=== PATIENT | female | born 1985 | race Caucasian/White ===

== ENCOUNTER 2020-07-09 16:37 | Emergency (ER) | payer OTHER, SELFPAY ==
--- NOTE | ~2020-07-09 | XR_ITS ---
EXAMINATION: XR forearm RT 2V DATE: 07/09/2020 17:11 INDICATION: Right forearm pain. TECHNIQUE: 2 views of right forearm were obtained. COMPARISON: None. FINDINGS: Bone alignment is normal. There is a fracture of right radial neck with mild impaction. Delmi nt spaces are well maintained. IMPRESSION: 1. Right radial neck fracture with mild impaction. Reviewed, dictated and finalized at location A.
[2020-07-09 16:46] VITALS: BP 129/73; PULSE 90; RESP 18; TEMP 36.8; O2SAT 98
--- NOTE | 2020-07-09 16:59 | ED.UPPEXIN ---
HPI - Extremity Injury (Upper) General Chief Complaint: Extremity Injury, Upper Stated Complaint: right arm injury Time Seen by Provider: 07/09/20 17:00 Source: patient and RN notes reviewed History of Present Illness HPI narrative: Patient is a 35-year-old female who presents the urgent care with complaints of right forearm and elbow pain. Patient states that [place] Patient states she fell directly onto the right arm and denies hitting her head or any loss of consciousness. Patient states that happened prior to arrival and she has not taken anything for pain. No other acute complaints. No acute distress noted. Patient aware of the plan of care. Some parts of this dictation were generated by voice recognition software and may contain typographical and/or grammatical inaccuracies. Related Data Home Medications Medication Instructions Recorded Confirmed levetiracetam [Keppra] 1,500 mg PO HS 07/09/20 07/09/20 metformin 1,500 mg PO BID 07/09/20 07/09/20 sertraline [Zoloft] 25 mg PO DAILY 07/09/20 07/09/20 Allergies Allergy/AdvReac Type Severity Reaction Status Date / Time phenytoin [From Dilantin] AdvReac Seizure Verified 07/09/20 17:16 Review of Systems Review of Systems: Narrative: CONSTITUTIONAL: Denies fever, chills, or sweats. EYES: Denies visual changes, redness, or discharge. ENT: Denies rhinorrhea, congestion, sore throat, or otalgia. CARDIOVASCULAR: Denies chest pain, palpitations, or edema. RESPIRATORY: Denies cough or dyspnea. GASTROINTESTINAL: Denies abdominal pain, nausea, vomiting, or diarrhea. GENITOURINARY: Denies dysuria or hematuria. SKIN: Denies rash or itching. MUSCULOSKELETAL: Reports of right forearm and elbow pain NEUROLOGIC: Denies headache, numbness, or weakness. All other systems reviewed are negative, except as documented in HPI. PMFSH Comments At the time of my signature, I reviewed and agree with the nursing past medical, surgical, social, and family history. There is no relevant family history pertinent to the patient complaint. Exam Narrative: Exam Narrative: GENERAL: This is a well-nourished, well-developed patient, in no apparent distress. HEAD: normocephalic, atraumatic. EYES: PERRL. Sclera clear/white. Vision is grossly intact. EARS: External ears normal NOSE: External nose normal with no obvious nasal discharge, nares without redness, no rhinorrhea. THROAT: Mucous membranes moist NECK: Neck supple SKIN: warm, intact with no suspicious lesions or rash, good texture and turgor. NEURO: awake, alert, and oriented to person, place and time. There were no obvious focal neurologic abnormalities. EXTREMITIES: Unable to assess range of motion to right upper extremity due to pain. Pain exacerbated with internal range of motion. Pain exacerbated with movement of the fingers. Positive strong right radial pulse with capillary refill less than 2 seconds. No obvious deformity, erythema or edema noted to the right upper extremity. Course Vital Signs Vital signs: Vital Signs Temperature 98.2 F 07/09/20 16:46 Pulse Rate 90 07/09/20 16:46 Respiratory Rate 18 07/09/20 16:46 Blood Pressure 129/73 07/09/20 16:46 Pulse Oximetry 98 07/09/20 16:46 Temperature 98.2 F 07/09/20 16:46 Pulse Rate 90 07/09/20 16:46 Respiratory Rate 18 07/09/20 16:46 Blood Pressure 129/73 07/09/20 16:46 Pulse Oximetry 98 07/09/20 16:46 Reviewed Procedures Orthopedic Splinting/Casting Injury #1: Side: right Upper Extremity Injury Location: upper arm (Radial neck) OCL: sugar tong Pre-Procedure Neuro Vascular Exam: normal Post-Procedure Neuro Vascular Exam: normal Additional Comments: Sugar tong applied to the right arm for radial neck fracture. Patient tolerated well. OCL placed by transporter radiology. Normal neurovascular exam pre and post procedure. Procedure successful. MDM - E
== END 2020-07-09 17:53 | disposition home or self-care (01) ==
PROVIDERS: Emergency Provider Nurse Practitioner Family
DX: S52.134A Nondisplaced fracture of neck of right radius, initial encounter for closed fracture (principal); W19.XXXA Unspecified fall, initial encounter; G40.909 Epilepsy, unspecified, not intractable, without status epilepticus; E28.2 Polycystic ovarian syndrome
CPT/HCPCS: 29125; 73090; 99214; A4565; G0463

== ENCOUNTER 2020-09-29 11:16 | Emergency (ER) | payer OTHER, SELFPAY ==
--- NOTE | ~2020-09-29 | XR_ITS ---
EXAMINATION: XR toe 1st RT min 2V EXAM DATE: 09/29/2020 11:35 INDICATION: Stubbing injury x 3 weeks, proximal pain. TECHNIQUE: Right 1st toe frontal, lateral and oblique projections obtained and reviewed. There is no prior study for comparison. FINDINGS: Probable acute closed posttraumatic fracture through the head of the right 1st proximal ph alanx into the interphalangeal joint. This finding has been indicated, marked on the examination for review, clinical correlation. No other suspicious findings. IMPRESSION: Probable right 1st proximal phalangeal head intra-articular fracture. Reviewed, dictated and finalized at location B. IMPRESSION: Probable right 1st proximal phalangeal head intra-articular fractu re.
[2020-09-29 11:20] VITALS: BP 125/90; PULSE 95; RESP 18; TEMP 37.1; O2SAT 98
[2020-09-29 11:30] VITALS: BP 125/90; PULSE 95; RESP 18; TEMP 37.1; O2SAT 98
--- NOTE | 2020-09-29 11:57 | ED.LOWEXIN ---
HPI - Extremity Injury (Lower) General Chief Complaint: Extremity Injury, Lower Stated Complaint: right big toe injury Source: patient and RN notes reviewed Mode of arrival: ambulatory History of Present Illness HPI Narrative: The obese patient, previously mostly healthy, presents with right toe pain. Patient states she has a least 1/2-month history of right toe pain that is mild, worse with motion, better at rest or previous fátima taping, located at the great toe. Symptoms began when she slipped hiking earlier in the month. No bleeding, deformity Related Data Home Medications Medication Instructions Recorded Confirmed levetiracetam [Keppra] 1,500 mg PO HS 07/09/20 09/29/20 metformin 1,500 mg PO BID 07/09/20 09/29/20 sertraline 50 mg PO DAILY 09/29/20 09/29/20 Allergies Allergy/AdvReac Type Severity Reaction Status Date / Time phenytoin [From Dilantin] AdvReac Seizure Verified 09/29/20 11:21 Review of Systems Review of Systems: Narrative: General/Constitutional: No weight loss,fever Eyes: N0: Redness,discharge Ears/Nose/Throat: No: Epistaxis,ear discharge Respiratory: Denies: Hemoptysis Gastrointestinal: No Vomiting, Bleeding-rectal Skin: No Lumps, eruption Neurologic: No Focal Weakness,Sz Hematologic: Denies: Petechiae/Purpura Psychiatric: No: Suicida ideationl All Other Systems: Reviewed and Negative [facility] Comments At time of signature, agree with nursing past medical, surgical, social and family history. There is no relevant family history pertinent to the presenting complaint Exam Narrative: Exam Narrative: General Appearance: Well appearing, conjunctiva clear Mouth/Throat: Normal appearing, Normal lips, Supple Respiratory: Airway patent, No respiratory distress MS-toe: Normal strength (mostly intact, limited flexion/extension by pain), Tenderness (MTP, with mild decreased ROM), Scant swelling (laterally), Other (no anterior drawer, no collateral laxity, Skin: Warm, Dry, Normal color Neurological: A&O x3, , Normal affect Course Course Emergency Course: Films visualized, interpreted by radiologist, agree, ABnormal see report Vital Signs Vital signs: Vital Signs Temperature 98.8 F 09/29/20 11:20 Pulse Rate 95 09/29/20 11:20 Respiratory Rate 18 09/29/20 11:20 Blood Pressure 125/90 09/29/20 11:20 Pulse Oximetry 98 09/29/20 11:20 Temperature 98.8 F 09/29/20 11:30 Pulse Rate 95 09/29/20 11:30 Respiratory Rate 18 09/29/20 11:30 Blood Pressure 125/90 09/29/20 11:30 Pulse Oximetry 98 09/29/20 11:30 Discharge Plan Discharge Clinical Impression: Fracture of toe Patient Disposition: Home, Self-Care Condition: Stable Instructions: Toe Fracture (ED) Additional Instructions: See podiatry in follow-up Prescriptions: New tramadol 50 mg tablet 50 - 75 mg PO TID PRN (Reason: pain) Qty: 14 RF: 0 epinephrine 0.3 mg/0.3 mL auto-injector 0.3 mg IM ONCE Qty: 1 RF: 3 No Action sertraline 50 mg tablet 50 mg PO DAILY RF: 0 levetiracetam [Keppra] 500 mg Tablet 1,500 mg PO HS RF: 0 metformin 500 mg Tablet 1,500 mg PO BID RF: 0 Follow-up/Referrals: PHYSICIAN,CERTIFIED TOWER CLIMBER [Primary Care Provider] -
--- NOTE | 2020-09-29 12:09 | PC.NURSE ---
PT DECLINED ICE FOR COMFORT AND WHEELCHAIR TO RADIOLOGY
== END 2020-09-29 12:05 | disposition home or self-care (01) ==
PROVIDERS: Emergency Provider Emergency Medicine
DX: S92.401A Displaced unspecified fracture of right great toe, initial encounter for closed fracture (principal); W01.0XXA Fall on same level from slipping, tripping and stumbling without subsequent striking against object, initial encounter; Y93.01 Activity, walking, marching and hiking; G40.909 Epilepsy, unspecified, not intractable, without status epilepticus; E28.2 Polycystic ovarian syndrome
CPT/HCPCS: 73660; 99213; G0463

== ENCOUNTER 2024-07-24 09:29 | Emergency (ER) | payer OTHER, SELFPAY ==
--- NOTE | 2024-07-24 09:31 | ED.WOUNDLAC ---
HPI - Wound/Laceration General Chief Complaint: Wound/Laceration Stated Complaint: Left Hand Finger Laceration Source: patient and RN notes reviewed Mode of arrival: ambulatory Limitations: no limitations History of Present Illness HPI narrative: Patient is a 39-year-old female who presents to the [facility] with complaints of laceration to the proximal phalanx of her left index finger. Patient states that she was using a supervisor mattress and boxsprings to cut a caution cone when she accidentally cut her finger. She was at work when the injury occurred. She works at the [employer]. Patient is neurovascularly intact. Distal motor intact. Sensation intact. Cap refill normal. Related Data Home Medications ?Medication ?Instructions ?Recorded ?Confirmed ?Last Taken ?Type levetiracetam 500 mg tablet 1,500 mg PO HS 07/09/20 09/29/20 Unknown History (Keppra) metformin 500 mg tablet 1,500 mg PO BID 07/09/20 09/29/20 Unknown History sertraline 50 mg tablet 50 mg PO DAILY 09/29/20 09/29/20 Unknown History Allergies Allergy/AdvReac Type Severity Reaction Status Date / Time phenytoin (From Dilantin) AdvReac Seizure Verified 09/29/20 11:21 Review of Systems Review of Systems: CONSTITUTIONAL: Denies fever, chills, or sweats. EYES: Denies visual changes, redness, or discharge. ENT: Denies otalgia and sore throat CARDIOVASCULAR: Denies chest pain, palpitations, or edema. RESPIRATORY: Denies cough or dyspnea. GASTROINTESTINAL: Denies abdominal pain, nausea, vomiting, or diarrhea. GENITOURINARY: Denies dysuria or hematuria. SKIN: reports laceration to the left index finger. MUSCULOSKELETAL: Denies back pain, joint pain, or myalgia. NEUROLOGIC: Denies headache, numbness, or weakness. Pertinent positives per HPI. PMFSH Comments At the time of my signature, I reviewed and agree with the nursing past medical, surgical, social, and family history. There is no relevant family history pertinent to the patient complaint. Exam Narrative: GENERAL: This is a well-nourished, well-developed patient, in no apparent distress. HEAD: normocephalic, atraumatic. EYES: PERRL. Sclera clear/white. Vision is grossly intact. EARS: External ears normal, auditory canals clear and without drainage, TMs normal without perforation. Hearing grossly intact. NOSE: External nose normal with no obvious nasal discharge, nares without redness, no rhinorrhea. THROAT: Mucous membranes moist, posterior pharynx clear. NECK: Neck supple, non-tender without lymphadenopathy, masses or thyromegaly. CARDIOVASCULAR: Regular rate and rhythm without murmurs, gallops, or rubs. RESPIRATORY: Clear to auscultation. Breath sounds equal bilaterally. No wheezes, rales, or rhonchi. GASTROINTESTINAL: Abdomen soft, non-tender, nondistended. Bowel sounds are active. No hepato-splenomegaly, or palpable masses. No guarding. SKIN: 1 cm laceration to the proximal phalanx of the left index finger. Bleeding controlled. Distal motor and neuro status intact. Cap refill normal. NEURO: awake, alert, and oriented to person, place and time. There were no obvious focal neurologic abnormalities. Course Course Level of Care: Express Care Visit Vital Signs Vital signs: Vital Signs Temperature 98.4 F 07/24/24 09:48 Pulse Rate 64 07/24/24 09:48 Respiratory Rate 16 07/24/24 09:48 Blood Pressure 104/59 L 07/24/24 09:48 Pulse Oximetry 99 07/24/24 09:48 Temperature 98.4 F 07/24/24 09:48 Pulse Rate 64 07/24/24 09:48 Respiratory Rate 16 07/24/24 09:48 Blood Pressure 104/59 L 07/24/24 09:48 Pulse Oximetry 99 07/24/24 09:48 Reviewed Procedures Laceration Laceration 1: Date: 07/24/24 Time: 10:10 Site: hand (left index finger) Side (If applicable): left Size (cm): 1 Description: linear Depth: simple, single layer Pre-repair: irrigated ====== Skin Level ====== Skin layer closed with: dermabond ====== Subcutaneous Layer ====== ====== Muscle Layer ====== ====== Tendon Layer ====== Dressing: Non-adhesive dressing MDM - Wound/Laceration MDM Narrative Medical decision making narrative: -Keep the dressing clean and dry for 1-2days; then you may gently clean with soap and water whenever you take a shower; however no continuous water contact like dishes or swimming. Getting them too wet can slow down healing and raise your chance of getting an infection. After you wash your stitches or andree, pat them dry and put an antibiotic ointment on them. -watch for signs of infection including: redness or swelling around the cut, or pus drains from the cut. It is normal for clear yellow fluid to drain from the cut in the first few days. -adhesive works like a bandage; do not use antibiotic ointment as it can break down the adhesive -You can shower while the adhesive is on your skin, but do not take a bath or soak or scrub the area for 7-10 days. Dry your skin by patting it gently with a towel. -The adhesive will peel off on its own; usually by 5-10days. If after 10 days, you still have adhesive on you, you can use antibiotic ointment or petroleum jelly to get it off. After you heal, you should protect the scar from the sun. Use sunscreen on the area or wear clothes or a hat that covers the scar. Follow up with your PCP is needed Differential Diagnosis Differential diagnosis: Likely laceration, abrasion and avulsion of skin Critical Care Time Critical Care Time Critical Care Time: No Discharge Plan Discharge Clinical Impression: Laceration of left index finger Qualifiers: Encounter type: initial encounter Damage to nail status: without damage Foreign body presence: without foreign body Qualified Code(s): S61.211A - Laceration without foreign body of left index finger without damage to nail, initial encounter Patient Disposition: Home Condition: Stable Instructions: Laceration (ED), Skin Adhesive Care (ED) Additional Instructions: -Keep the dressing clean and dry for 1-2days; then you may gently clean with soap and water whenever you take a shower; however no continuous water contact like dishes or swimming. Getting them too wet can slow down healing and raise your chance of getting an infection. After you wash your stitches or andree, pat them dry and put an antibiotic ointment on them. -watch for signs of infection including: redness or swelling around the cut, or pus drains from the cut. It is normal for clear yellow fluid to drain from the cut in the first few days. -adhesive works like a bandage; do not use antibiotic onitment as it can break down the adhesive -You can shower while the adhesive is on your skin, but do not take a bath or soak or scrub the area for 7-10 days. Dry your skin by patting it gently with a towel. -The adhesive will peel off on its own; usually by 5-10days. If after 10 days, you still have adhesive on you, you can use antibiotic ointment or petroleum jelly to get it off. After you heal, you should protect the scar from the sun. Use sunscreen on the area or wear clothes or a hat that covers the scar. Follow up with your PCP is needed Patient Language: Spanish Prescriptions: No Action sertraline 50 mg tablet 50 mg PO DAILY tramadol 50 mg tablet 50 - 75 mg PO TID PRN (Reason: pain) Qty: 14 0RF epinephrine 0.3 mg/0.3 mL auto-injector 0.3 mg IM ONCE Qty: 1 3RF Rx Instructions: as a single dose levetiracetam [Keppra] 500 mg Tablet 1,500 mg PO HS metformin 500 mg Tablet 1,500 mg PO BID Follow-up/Referrals: UNKNOWN,DOCTOR [Non-Staff] - Stand Alone Forms: Work/School Release IP Time of Disposition: 10:23
[2024-07-24 09:48] VITALS: BP 104/59; PULSE 64; RESP 16; TEMP 36.9; O2SAT 99
== END 2024-07-24 10:42 | disposition home or self-care (01) ==
PROVIDERS: Emergency Provider Nurse Practitioner
DX: S61.211A Laceration without foreign body of left index finger without damage to nail, initial encounter (principal); W27.8XXA Contact with other nonpowered hand tool, initial encounter; Y99.0 Civilian activity done for income or pay; G40.909 Epilepsy, unspecified, not intractable, without status epilepticus; E78.00 Pure hypercholesterolemia, unspecified; R73.03 Prediabetes; E28.2 Polycystic ovarian syndrome
CPT/HCPCS: 12001; 99212; G0463

== ENCOUNTER 2024-07-25 08:51 | Emergency (ER) | payer OTHER, SELFPAY ==
[2024-07-25 09:05] VITALS: BP 111/65; PULSE 79; RESP 16; TEMP 36.6; O2SAT 100
--- NOTE | 2024-07-25 09:24 | ED.WOUNDLAC ---
HPI - Wound/Laceration General Chief Complaint: Wound/Laceration Stated Complaint: L INDEX FINGER LACERATION Time Seen by Provider: 07/25/24 09:25 Source: patient, RN notes reviewed and old records reviewed Mode of arrival: ambulatory Limitations: no limitations History of Present Illness HPI narrative: 39 year old female who presents to [facility] with stated complaints of injury to her left index finger yesterday morning when she cut it with a gill box fixer and was seen in the clinic and wound was glued with wound glue. Patient reports that she was hit in her finger and it started bleeding and feels the wound is now gaping and needs to be reglued. No active bleeding noted at this time. Onset (ago): day(s) (occurred yesterday morning at work) Location: other (left index finger proximal phalanx) Place: work Treatments prior to arrival: bandage Related Data Home Medications ?Medication ?Instructions ?Recorded ?Confirmed ?Last Taken ?Type metformin 500 mg tablet 1,500 mg PO BID 07/09/20 07/25/24 Unknown History sertraline 50 mg tablet 50 mg PO DAILY 09/29/20 07/25/24 Unknown History Ozempic 07/25/24 Unknown History rosuvastatin 07/25/24 Unknown History Allergies Allergy/AdvReac Type Severity Reaction Status Date / Time phenytoin (From Dilantin) AdvReac Seizure Verified 07/25/24 09:17 Review of Systems Review of Systems: CONSTITUTIONAL: Denies fever, chills, or sweats. CARDIOVASCULAR: Denies chest pain, palpitations, or edema. RESPIRATORY: Denies cough or dyspnea. SKIN: Reports laceration to left index finger which occurred yesterday morning was glued in clinic yesterday and wound came open MUSCULOSKELETAL: Denies musculoskeletal pain NEUROLOGIC: Denies numbness, or weakness. All systems reviewed & are unremarkable except as noted in HPI and below PMFSH Past Medical History Medical History Anxiety and depression Prediabetes Seizures Epilepsy History of PCOS Surgical History Surgical History H/O: hysterectomy Social History Social History (Updated 07/25/24 @ 10:37 by Daneille Bassett NP) Smoking status: Current some day smoker Tobacco type: cigarettes Alcohol intake: current Alcohol use details: social Substance use type: does not use Living arrangements: with family Gender identity (if verbalized by the patient): Female Comments At time of signature, agree with nursing past medical, surgical, social and family history. There is no relevant family history pertinent to the presenting complaint Exam Narrative: GENERAL: Well-appearing, well-nourished, and in no acute distress. HEAD: Normocephalic, atraumatic. NECK: Supple. no lymphadenopathy CHEST: Clear to auscultation. No respiratory distress. SAO2 100% on room air HEART: Regular rate and rhythm. No murmur heard. Normal peripheral pulses. EXTREMITIES: Normal range of motion. No edema. SKIN: Warm, dry, no rash. Reports laceration left proximal aspect of index finger which occurred yesterday with some gaping of wound noted no redness of wound no bleeding at this time.see procedure note. NEURO: No focal deficits. Alert and oriented x3. Course Course Level of Care: Express Care Visit Vital Signs Vital signs: Vital Signs Temperature 36.6 C 07/25/24 09:05 Pulse Rate 79 07/25/24 09:05 Respiratory Rate 16 07/25/24 09:05 Blood Pressure 111/65 07/25/24 09:05 Pulse Oximetry 100 07/25/24 09:05 Temperature 36.6 C 07/25/24 09:05 Pulse Rate 79 07/25/24 09:05 Respiratory Rate 16 07/25/24 09:05 Blood Pressure 111/65 07/25/24 09:05 Pulse Oximetry 100 07/25/24 09:05 reviewed Procedures Laceration index finger: Date: 07/25/24 Time: 10:38 Site: hand (left proximal phalanx of index finger) Side (If applicable): left Size (cm): 3 Description: linear Depth: simple, single layer Local Anesthetic: none Pre-repair: other (wound cleansed with wound cleanser) ====== Skin Level ====== Skin layer closed with: dermabond and steri strips ====== Subcutaneous Layer ====== ====== Muscle Layer ====== ====== Tendon Layer ====== Dressing: Small amount of gaping of wound noted and patient stated that she noted some bleeding from wound yesterday. Left proximal index finger wound cleansed with wound cleanser and saline and patted dry, skin glue 3 layers applied and steri strips over wound edges also for added support. left open to air on discharge patient instructed to cover as desired. MDM - Wound/Laceration MDM Narrative Medical decision making narrative: Wound explored for foreign body and copious irrigation provided with no evidence of FB. Discussed the potential of retained foreign body with the patient and signs/symptoms that should prompt the patient to immediately go to the ED for reevaluation. The wound was explored and no foreign bodies were found. There was no evidence of tendon or nerve lacerations. The wound was closed per procedure note. A sterile dressing was then applied and anticipatory guidance was provided. Tetanus prophylaxis was not given Differential Diagnosis Differential diagnosis: Likely laceration and other (dehiscence of wound left index finger, wound repair) Medical Records Attestation: I reviewed the patient's medical records. Critical Care Time Critical Care Time Critical Care Time: No Discharge Plan Discharge Clinical Impression: Dehiscence of laceration wound of finger Qualifiers: Encounter type: initial encounter Qualified Code(s): T81.33XA - Disruption of traumatic injury wound repair, initial encounter Patient Disposition: Home Condition: Stable Instructions: Skin Adhesive Care (ED), Acute Wounds (ED), Skin Adhesive Strips (ED) Additional Instructions: Keep the area clean and dry No continuous water contact like dishes or swimming You may bathe and wash you hair caution with hair products or lotions dressing of choice let steri strips fall off on their own watch for infection--redness, swelling, drainage recheck with PCP if further concerns or problems If your symptoms persist, change or worsen significantly before you can contact your personal physician then please, without delay, go to the emergency department for further evaluation. Follow-up with PCP in 7-10 days or sooner if needed Patient Language: Lithuanian Prescriptions: No Action sertraline 50 mg tablet 50 mg PO DAILY tramadol 50 mg tablet 50 - 75 mg PO TID PRN (Reason: pain) Qty: 14 0RF epinephrine 0.3 mg/0.3 mL auto-injector 0.3 mg IM ONCE Qty: 1 3RF Rx Instructions: as a single dose metformin 500 mg Tablet 1,500 mg PO BID Follow-up/Referrals: PHYSICIAN,TEST ENGINEER [employer]UC[employer] EQUIPMENT [Primary Care Provider] - Stand Alone Forms: Work/School Release IP Time of Disposition: 09:52 Quality Pro Coma Scale Eyes: Open Verbal: Oriented and Alert Motor: Follows Commands [place] Coma Total Score: 15
== END 2024-07-25 09:52 | disposition home or self-care (01) ==
PROVIDERS: Emergency Provider Registered Nurse
DX: T81.33XA Disruption of traumatic injury wound repair, initial encounter (principal); F17.210 Nicotine dependence, cigarettes, uncomplicated; R73.03 Prediabetes; E28.2 Polycystic ovarian syndrome; F32.A Depression, unspecified; F41.9 Anxiety disorder, unspecified
CPT/HCPCS: 12002; 99212; G0463